=== PATIENT | female | born 1995 | race American Indian/Alaskan Native ===

== ENCOUNTER 2018-03-27 11:56 | Emergency (ER) | payer SELFPAY ==
[2018-03-27 12:10] VITALS: BP 111/66
--- NOTE | 2018-03-27 13:06 | Emergency Department Report ---
ED Female HPI - General Chief complaint: Urogenital-Female Stated complaint: BLEEDING Time Seen by Provider: 03/27/18 12:23 Source: patient, family, manager strategic marketing Mode of arrival: Ambulatory Limitations: Language Barrier - History of Present Illness Initial comments: This is a 23-year-old female presents to the emergency room after noticed blood and tissue this morning. She reports that she is 11 weeks and she does see VOLUNTEER SERVICES ASSISTANT. Denies any abdominal or back pain. Her pain scale is 0 out of 10. Patient says she is worried and would like to be evaluated. She is not concerned for STD as she is being seen by her VOLUNTEER SERVICES ASSISTANT and had a quantitative which placed her at 11 weeks and also STD testing. SHe denies any vaginal discharge MD Complaint: vaginal bleeding -: This morning Radiation: non-radiating Severity scale (0 -10): 0 Are you Now?: Yes (11 weeks) Last Menstrual Period: 12/22/17 EDC: 09/28/18 Associated Symptoms: vaginal bleeding. denies: vaginal discharge, abdominal pain, nausea/vomiting, fever/chills, headaches, loss of appetite, dysuria, hematuria, rash, seizure, shortness of breath, syncope, weakness - Related Data Sexually active: Yes Allergies Allergy/AdvReac Type Severity Reaction Status Date / Time No Known Allergies Allergy Unverified 03/27/18 12:10 ED Review of Systems ROS: Stated complaint: BLEEDING Other details as noted in HPI Constitutional: denies: chills, fever Eyes: denies: eye pain, eye discharge ENT: denies: ear pain, throat pain, hearing loss, congestion Respiratory: denies: cough, shortness of breath, SOB with exertion, SOB at rest , wheezing Cardiovascular: denies: chest pain, palpitations, edema, syncope, paroxysmal nocturnal dyspnea Gastrointestinal: denies: abdominal pain, nausea, vomiting, diarrhea Genitourinary: other (vaginal bleed and). denies: urgency, dysuria, frequency, hematuria, discharge, dyspareunia Musculoskeletal: denies: back pain, joint swelling, arthralgia, myalgia Skin: denies: rash, lesions Neurological: denies: headache, weakness, abnormal gait, vertigo ED Past Medical Hx - Past Medical History Previous Medical History?: No - Surgical History Past Surgical History?: No - Family History Family history: no significant - Social History Smoking Status: Never Smoker Substance Use Type: None ED Physical Exam - General Limitations: Language Barrier General appearance: alert, in no apparent distress - Head Head exam: Present: atraumatic, normocephalic, normal inspection - Eye Eye exam: Present: normal appearance, PERRL, EOMI Pupils: Present: normal accommodation - ENT ENT exam: Present: normal exam, normal orophraynx, mucous membranes moist - Neck Neck exam: Present: normal inspection, full ROM. Absent: tenderness, lymphadenopathy - Respiratory Respiratory exam: Present: normal lung sounds bilaterally. Absent: respiratory distress, chest wall tenderness - Cardiovascular Cardiovascular Exam: Present: regular rate, normal rhythm, normal heart sounds. Absent: systolic murmur, diastolic murmur - GI/Abdominal GI/Abdominal exam: Present: soft, normal bowel sounds. Absent: distended, tenderness, guarding, rebound, rigid - External exam: Present: normal external exam. Absent: erythema, swelling, lesions, lacerations, ecchymosis, bleeding - Extremities Exam Extremities exam: Present: normal inspection, full ROM, normal capillary refill , other (No cce. + 2 pulses in all extremities, no neurovascular compromise). Absent: tenderness, pedal edema, joint swelling, calf tenderness - Back Exam Back exam: Present: normal inspection, full ROM, other (endplates without any difficulties). Absent: tenderness, CVA tenderness (R), CVA tenderness (L), muscle spasm, paraspinal tenderness, vertebral tenderness, rash noted - Neurological Exam Neurological exam: Present: alert, oriented X3, normal gait - Psychiatric Psychiatric exam: Present: normal affect, normal mood - Skin Skin exam: Present: warm, dry, intact, normal color. Absent: rash ED Course Vital Signs 03/27/18 11:59 Temperature 99.1 F Pulse Rate 98 H Respiratory 16 Rate Blood Pressure 111/66 O2 Sat by Pulse 100 Oximetry - Reevaluation(s) Reevaluation #1: 03/27/18 16:46 Patient was given IV fluid normal saline 1 L and Zofran 4 mg IV. She is stable and in no acute distress. ED Medical Decision Making - Lab Data Result diagrams: 03/27/18 13:32 03/27/18 13:32 Lab Results 03/27/18 03/27/18 03/27/18 Range/Units 13:32 13:32 13:32 WBC 5.4 (4.5-11.0) K/mm3 RBC 4.21 (3.65-5.03) M/mm3 Hgb 13.3 (10.1-14.3) gm/dl Hct 37.9 (30.3-42.9) % MCV 90 (79-97) fl MCH 32 (28-32) pg MCHC 35 H (30-34) % RDW 13.3 (13.2-15.2) % Plt Count 179 (140-440) K/mm3 Lymph % (Auto) 28.1 (13.4-35.0) % [place] % (Auto) 8.7 H (0.0-7.3) % Eos % (Auto) 0.8 (0.0-4.3) % Baso % (Auto) 0.3 (0.0-1.8) % Lymph # 1.5 (1.2-5.4) K/mm3 [place] # 0.5 (0.0-0.8) K/mm3 Eos # 0.0 (0.0-0.4) K/mm3 Baso # 0.0 (0.0-0.1) K/mm3 Seg Neutrophils % 62.1 (40.0-70.0) % Seg Neutrophils # 3.3 (1.8-7.7) K/mm3 Sodium 136 L (137-145) mmol/L Potassium 3.6 (3.6-5.0) mmol/L Chloride 100.0 (98-107) mmol/L Carbon Dioxide 19 L (22-30) mmol/L Anion Gap 21 mmol/L BUN 6 L (7-17) mg/dL Creatinine 0.4 L (0.7-1.2) mg/dL Estimated GFR > 60 ml/min BUN/Creatinine Ratio 15 % Glucose 77 (65-100) mg/dL Calcium 8.9 (8.4-10.2) mg/dL Total Bilirubin 0.40 (0.1-1.2) mg/dL AST 15 (5-40) units/L ALT 15 (7-56) units/L Alkaline Phosphatase 45 (35-129) units/L Total Protein 7.1 (6.3-8.2) g/dL Albumin 3.9 (3.9-5) g/dL Albumin/Globulin Ratio 1.2 % HCG, Quant [id number] H (0-4) mIU/mL Urine Color (Yellow) Urine Turbidity (Clear) Urine pH (5.0-7.0) Ur Specific [place] (1.003-1.030) Urine Protein (Negative) mg/dL Urine Glucose (UA) (Negative) mg/dL Urine Ketones (Negative) mg/dL Urine Blood (Negative) Urine Nitrite (Negative) Ur Reducing Substances Urine Bilirubin (Negative) Urine Ictotest Urine Urobilinogen (<2.0) mg/dL Ur Leukocyte Esterase (Negative) Urine WBC (Auto) (0.0-6.0) /HPF Urine RBC (Auto) (0.0-6.0) /HPF U Epithel Cells (Auto) (0-13.0) /HPF Amorphous Crystals Urine Mucus /HPF Urine HCG, Qual (Negative) Blood Type Antibody Screen 03/27/18 03/27/18 Range/Units 13:32 14:25 WBC (4.5-11.0) K/mm3 RBC (3.65-5.03) M/mm3 Hgb (10.1-14.3) gm/dl Hct (30.3-42.9) % MCV (79-97) fl MCH (28-32) pg MCHC (30-34) % RDW (13.2-15.2) % Plt Count (140-440) K/mm3 Lymph % (Auto) (13.4-35.0) % [place] % (Auto) (0.0-7.3) % Eos % (Auto) (0.0-4.3) % Baso % (Auto) (0.0-1.8) % Lymph # (1.2-5.4) K/mm3 [place] # (0.0-0.8) K/mm3 Eos # (0.0-0.4) K/mm3 Baso # (0.0-0.1) K/mm3 Seg Neutrophils % (40.0-70.0) % Seg Neutrophils # (1.8-7.7) K/mm3 Sodium (137-145) mmol/L Potassium (3.6-5.0) mmol/L Chloride (98-107) mmol/L Carbon Dioxide (22-30) mmol/L Anion Gap mmol/L BUN (7-17) mg/dL Creatinine (0.7-1.2) mg/dL Estimated GFR ml/min BUN/Creatinine Ratio % Glucose (65-100) mg/dL Calcium (8.4-10.2) mg/dL Total Bilirubin (0.1-1.2) mg/dL AST (5-40) units/L ALT (7-56) units/L Alkaline Phosphatase (35-129) units/L Total Protein (6.3-8.2) g/dL Albumin (3.9-5) g/dL Albumin/Globulin Ratio % HCG, Quant (0-4) mIU/mL Urine Color Yellow (Yellow) Urine Turbidity Clear (Clear) Urine pH 7.0 (5.0-7.0) Ur Specific [place] 1.015 (1.003-1.030) Urine Protein <15 mg/dl (Negative) mg/dL Urine Glucose (UA) Neg (Negative) mg/dL Urine Ketones Neg (Negative) mg/dL Urine Blood Neg (Negative) Urine Nitrite Neg (Negative) Ur Reducing Substances Not Reportable Urine Bilirubin Neg (Negative) Urine Ictotest Not Reportable Urine Urobilinogen 2.0 (<2.0) mg/dL Ur Leukocyte Esterase Neg (Negative) Urine WBC (Auto) 1.0 (0.0-6.0) /HPF Urine RBC (Auto) 3.0 (0.0-6.0) /HPF U Epithel Cells (Auto) 4.0 (0-13.0) /HPF Amorphous Crystals Few Urine Mucus Few /HPF Urine HCG, Qual Positive A (Negative) Blood Type B POSITIVE Antibody Screen Negative - Radiology Data Radiology results: report reviewed X-rays transabdominal and OB transvaginal dictated by radiologist and report reviewed by myself. Please see report below. Patient: KHRIS RENAE MR#: [id number] : 1995 Acct:[id number] Age/Sex: 23 / F ADM Date: 03/27/18 Loc: ED Attending Dr: Ordering Physician: ADAMS MCKEE Date of Service: 03/27/18 Procedure(s): US OB transvaginal Accession Number(s): [id number] cc: ADAMS MCKEE FINAL REPORT PROCEDURE: US OB TRANSVAGINAL TECHNIQUE: Real-time transvaginal sonography of the uterus, placenta, amniotic fluid, adnexa, and fetus was performed with image documentation. Measurements were obtained to determine age/size. M-mode Doppler was used to document heartbeat. CPT 58182 HISTORY: 11 weeks and bleeding COMPARISON: Transabdominal OB ultrasound also performed today. FINDINGS: The report for this exam was generated using images from both the transabdominal and the transvaginal OB ultrasound both of which were performed today. There is a single living intrauterine gestation with a heart rate of 163 beats per minute. Shape of the gestational sac appears normal. Yolk sac is visualized. Amount of amniotic fluid appears normal. There is nonspecific mild amnio chorionic separation. Fetus currently too small to accurately assess anatomy. No gross abnormality is visualized. [place]-rump length measurement 4 centimeters corresponds to an age of 10 weeks 6 days[address] the EDC at 10/17/2018 +/-1 week. No evidence of subchorionic hemorrhage. No uterine masses are identified. Right and left ovaries are visualized and show no abnormalities. IMPRESSION: Single living intrauterine gestation visualized. By crown-rump length measurement estimated age is 10 weeks 6 days. This places the EDC at 10/17/2018 +/-1 week. No evidence of subchorionic hemorrhage. There is nonspecific amnion chorion separation. Fetus currently too small accurately assess anatomy. No gross abnormality is seen. Consider follow-up anatomic screen at 18-20 weeks. Transcribed By: YAMIL Dictated By: MARLEY PATINO MD Electronically Authenticated By: MARLEY PATINO MD Signed Date/Time: 03/27/18 1601 DD/ 1601 TD/TT: 03/27/18 1601 Patient: KHRIS RENAE MR#: [id number] : 1995 Acct:[id number] Age/Sex: 23 / F ADM Date: 03/27/18 Loc: ED Attending Dr: Ordering Physician: ADAMS MCKEE Date of Service: 03/27/18 Procedure(s): US OB <= 14 weeks fetus Accession Number(s): [id number] cc: ADAMS MCKEE FINAL REPORT PROCEDURE: US OB lt; = 14 WEEKS FETUS TECHNIQUE: Real-time transabdominal sonography of the uterus, placenta, amniotic fluid, adnexa, and fetus was performed with image documentation. Measurements were obtained to determine age/size. M-mode Doppler was used to document heartbeat. CPT 52999 HISTORY: 11 weeks and bleeding COMPARISON: Transvaginal OB ultrasound also performed today. FINDINGS: The report for this exam was generated using images from both the transabdominal and the transvaginal OB ultrasound both of which were performed today. There is a single living intrauterine gestation with a heart rate of 163 beats per minute. Shape of the gestational sac appears normal. Yolk sac is visualized. Amount of amniotic fluid appears normal. There is nonspecific mild amnio chorionic separation. Fetus currently too small to accurately assess anatomy. No gross abnormality is visualized. [place]-rump length measurement 4 centimeters corresponds to an age of 10 weeks 6 days. This places the EDC at 10/17/2018 +/-1 week. No evidence of subchorionic hemorrhage. No uterine masses are identified. Right and left ovaries are visualized and show no abnormalities. IMPRESSION: Single living intrauterine gestation visualized. By crown-rump length measurement estimated age is 10 weeks 6 days. This places the EDC at 10/17/2018 +/-1 week. No evidence of subchorionic hemorrhage. There is nonspecific amnion chorion separation. Fetus currently too small accurately assess anatomy. No gross abnormality is seen. Consider follow-up anatomic screen at 18-20 weeks. Transcribed By: YAMIL Dictated By: MARLEY PATINO MD Electronically Authenticated By: MARLEY PATINO MD Signed Date/Time: 03/27/181558 DD/ 58 TD/TT: 03/27/181558 - Medical Decision Making This is a 23-year-old female here report that she is having slight vaginal bleeding and and she is at 11 weeks . She says she is going to [facility] and she has had a blood test done and they told her she was 11 weeks but she has not ultrasound. Patient says that she has been once before without any problems. She is or 2 para 1. Denies any urinary burning, frequency or urgency. Denies any nausea or vomiting. Denies any abdominal or back pain. Patient denies any shortness of breath or chest pain. Patient says she woke up this morning and she wiped she saw light blood on tissue and she is here to be evaluated. This patient was seen and evaluated by myself. Physical exam is normal and no bleeding noted from vaginal area. Patient had CBC which was stable, chemistry stable. Quantitative hCG correlate at 11-12 weeks . Urinalysis negative for infection, ketone or protein. Urine is positive. Type and screen shows patient is B+. Patient has known episode of bleeding or abdominal pain in the emergency room. He had OB less than 14 week transabdominal and transvaginal ultrasound which shows IUP at 10 weeks and 6 days and heart rate is 163 bpm. no evidence of subchorionic hemorrhage noted per radiologist and she has nonspecific amnion chorion separation. Vital signs are stable she is afebrile. This was explained to patient and she voiced understanding. I encouraged her that she needs to follow up with her OB/ TRAINING AND DEVELOPMENT COORDINATOR tomorrow to call in the morning to schedule appointment and if she has increase in vaginal bleeding, abdominal or back pain, fever and/or chills or nausea or vomiting to return to the emergency room ALEXANDREA. Patient was not concerned for STD as she already had seen her VOLUNTEER SERVICES ASSISTANT and she said she had STD test then and blood work done but she did not have ultrasound. A/P 1: Threatened miscarriage-ultrasound show no evidence of subchorionic hemorrhage. Fetus is in utero at 10 weeks and 6 days with heart rate of 163 bpm. Patient with nonspecific amnion chorion separation. 2: Vaginal bleeding in early -patient had no episode of bleeding in the emergency room and her CBC is stable. I encouraged her to continue taking her vitamins and also to return to emergency room if bleeding increases. She had a light bleeding that she noted on tissue paper this morning. IV fluid normal saline 1 L given in emergency room and Zofran 4 mg IV to prevent nausea. Patient discharged home with her in stable condition to follow-up with her VOLUNTEER SERVICES ASSISTANT to call tomorrow to schedule an appointment. Her vital signs are stable she is afebrile. Denies any pain, nausea vomiting. No prescription given she is already on vitamin. - Differential Diagnosis ectopic , miscarriage, threatened miscarriage, UTI Critical care attestation.: If time is entered above; I have spent that time in minutes in the direct care of this critically ill patient, excluding procedure time. ED Disposition Clinical Impression: Threatened miscarriage in early , Separation of chorion and amnion membranes, antepartum, Vaginal bleeding in Disposition: DC-01 TO HOME OR SELFCARE Is pt being admited?: No Does the pt Need Aspirin: No Condition: Stable Instructions: Threatened Miscarriage (ED) Additional Instructions: Please increase her fluid intake Take vitamin per your VOLUNTEER SERVICES ASSISTANT VOLUNTEER SERVICES ASSISTANT in the morning to schedule follow-up appointment and please bring discharge instruction paperwork with you. If you develop continuous bleeding, abdominal back pain, urinary burning frequency or urgency, nausea and vomiting or fever or chills, please return to emergency room. The baby is at 10 weeks and 6 days old, located in uterus and the baby's heartbeat is at 163 bpm which is good amnion chorion separation. Por favor aumente lewis consumo de lquidos [place] vitamina segn lewis OB / TRAINING AND DEVELOPMENT COORDINATOR OB / TRAINING AND DEVELOPMENT COORDINATOR por la maana para programar elizabeth shashank de seguimiento y traiga la documentacin de instrucciones de georges con usted. Si desarrolla sangrado continuo, dolor de espalda abdominal, frecuencia o urgencia de ardor urinario, nuseas y vmitos o fiebre o escalofros, regrese a la sania de emergencias. El beb tiene 10 semanas y 6 mariee de [place], se encuentra en el tero y el latido cardaco del beb est a 163 lpm, lo que es butts separacin amnion corion. Referrals: these follow-up with your, VOLUNTEER SERVICES ASSISTANT [Other] - 03/28/18 Forms: Accompanied Note, Work/School Release Form(ED)
[2018-03-27 13:56] LABS: Basophils % (Auto) 0.3 % (0.0-1.8); Eosinophils % (Auto) 0.8 % (0.0-4.3); Hematocrit 37.9 % (30.3-42.9); Hemoglobin 13.3 gm/dl (10.1-14.3); Lymphocytes # (Auto) 1.5 K/mm3 (1.2-5.4); Lymphocytes % (Auto) 28.1 % (13.4-35.0); Mean Corpuscular HGB Conc 35 % (30-34); Mean Corpuscular Hemoglobin 32 pg (28-32); Mean Corpuscular Volume 90 fl (79-97); Monocytes # (Auto) 0.5 K/mm3 (0.0-0.8); Monocytes % (Auto) 8.7 % (0.0-7.3); Platelet Count 179 K/mm3 (140-440); Red Blood Count 4.21 M/mm3 (3.65-5.03); Red Cell Distribution Width 13.3 % (13.2-15.2)
[2018-03-27] MEDS ORDERED: NACL 0.9% 1000 ML 1,000 ML IV ONE (13:58)
[2018-03-27] MEDS ORDERED: ZOFRAN IV ONE (13:58)
[2018-03-27 14:20] LABS: Alanine Aminotransferase 15 units/L (7-56); Albumin 3.9 g/dL (3.9-5); BUN/Creatinine Ratio 15; Blood Urea Nitrogen 6 mg/dL (7-17); Calcium 8.9 mg/dL (8.4-10.2); Hemolysis Index 13
[2018-03-27 15:20] LABS: HCG Qualitative,Urine Positive (Negative)
[2018-03-27 15:26] LABS: Amorphous Crystals,Urine Few; Bilirubin,Urine NEG (Negative); Blood,Urine NEG (Negative); Color,Urine Yellow (Yellow); Mucus,Urine FEW /HPF; Protein,Urine <15 mg/dL mg/dL (Negative)
--- NOTE | 2018-03-27 16:06 | Ultrasound Report ---
FINAL REPORT PROCEDURE: US OB < = 14 WEEKS FETUS TECHNIQUE: Real-time transabdominal sonography of the uterus, placenta, amniotic fluid, adnexa, and fetus was performed with image documentation. Measurements were obtained to determine age/size. M-mode Doppler was used to document heartbeat. CPT 05606 HISTORY: 11 weeks and bleeding COMPARISON: Transvaginal OB ultrasound also performed today. FINDINGS: The report for this exam was generated using images from both the transabdominal and the transvaginal OB ultrasound both of which were performed today. There is a single living intrauterine gestation with a heart rate of 163 beats per minute. Shape of the gestational sac appears normal. Yolk sac is visualized. Amount of amniotic fluid appears normal. There is nonspecific mild amnio chorionic separation. Fetus currently too small to accurately assess anatomy. No gross abnormality is visualized. [place]-rump length measurement 4 centimeters corresponds to an age of 10 weeks 6 days. This places the EDC at 10/17/2018 +/-1 week. No evidence of subchorionic hemorrhage. No uterine masses are identified. Right and left ovaries are visualized and show no abnormalities. IMPRESSION: Single living intrauterine gestation visualized. By crown-rump length measurement estimated age is 10 weeks 6 days. This places the EDC at 10/17/2018 +/-1 week. No evidence of subchorionic hemorrhage. There is nonspecific amnion chorion separation. Fetus currently too small accurately assess anatomy. No gross abnormality is seen. Consider follow-up anatomic screen at 18-20 weeks.
--- NOTE | 2018-03-27 16:08 | Ultrasound Report ---
FINAL REPORT PROCEDURE: US OB TRANSVAGINAL TECHNIQUE: Real-time transvaginal sonography of the uterus, placenta, amniotic fluid, adnexa, and fetus was performed with image documentation. Measurements were obtained to determine age/size. M-mode Doppler was used to document heartbeat. CPT 16410 HISTORY: 11 weeks and bleeding COMPARISON: Transabdominal OB ultrasound also performed today. FINDINGS: The report for this exam was generated using images from both the transabdominal and the transvaginal OB ultrasound both of which were performed today. There is a single living intrauterine gestation with a heart rate of 163 beats per minute. Shape of the gestational sac appears normal. Yolk sac is visualized. Amount of amniotic fluid appears normal. There is nonspecific mild amnio chorionic separation. Fetus currently too small to accurately assess anatomy. No gross abnormality is visualized. [place]-rump length measurement 4 centimeters corresponds to an age of 10 weeks 6 days. This places the EDC at 10/17/2018 +/-1 week. No evidence of subchorionic hemorrhage. No uterine masses are identified. Right and left ovaries are visualized and show no abnormalities. IMPRESSION: Single living intrauterine gestation visualized. By crown-rump length measurement estimated age is 10 weeks 6 days. This places the EDC at 10/17/2018 +/-1 week. No evidence of subchorionic hemorrhage. There is nonspecific amnion chorion separation. Fetus currently too small accurately assess anatomy. No gross abnormality is seen. Consider follow-up anatomic screen at 18-20 weeks.
== END 2018-03-27 17:17 | disposition home or self-care (01) ==
LOC: ED 11:56
DX: O20.0 Threatened abortion (principal); O45.91 Premature separation of placenta, unspecified, first trimester; Z3A.11 11 weeks gestation of pregnancy
CPT/HCPCS: 36415; 76801; 76817; 80053; 81001; 81025; 84702; 85025; 86850; 86900; 86901; 87086; 99284; J2405; J7030

== ENCOUNTER 2020-03-03 10:30 | Emergency (ER) | payer SELFPAY ==
[2020-03-03 10:41] VITALS: BP 94/64
[2020-03-03 12:19] LABS: Basophils % (Auto) 0.3 % (0.0-1.8); Eosinophils # (Auto) 0.1 K/mm3 (0.0-0.4); Eosinophils % (Auto) 1.2 % (0.0-4.3); Hematocrit 44.5 % (30.3-42.9); Hemoglobin 14.7 gm/dl (10.1-14.3); Lymphocytes # (Auto) 1.5 K/mm3 (1.2-5.4); Lymphocytes % (Auto) 33.6 % (13.4-35.0); Mean Corpuscular HGB Conc 33 % (30-34); Mean Corpuscular Volume 93 fl (79-97); Monocytes # (Auto) 0.3 K/mm3 (0.0-0.8); Platelet Count 174 K/mm3 (140-440); Red Blood Count 4.77 M/mm3 (3.65-5.03); Red Cell Distribution Width 13.8 % (13.2-15.2)
--- NOTE | 2020-03-03 12:27 | Emergency Department Report ---
ED HPI - General Chief complaint: Vaginal Bleeding Stated complaint: 12WKS PREG AND BLEEDING Time Seen by Provider: 03/03/20 11:43 Source: patient Mode of arrival: Ambulatory Limitations: No Limitations - History of Present Illness Initial comments: This is a 25-year-old female nontoxic, well nourished in appearance, no acute signs of distress presents to the ED with c/o of vaginal bleeding x1 day. Patient stated yesterday she noticed some spotting this morning. Patient denies any abdominal or pelvic pain. Patient denies any vaginal discharge or foul odor. Patient denies any nausea, vomiting, chest pain, shortness of breathe, fever, chills, headache, stiff neck, numbness, tingling. Patient denies any urinary symptoms. Patient denies any allergies or PMH. Stated is abiout 12 weeks . MD Complaint: vaginal bleeding -: This morning Radiation: none Severity scale (0 -10): 0 Improves with: none Worsens with: none Associated symptoms: vaginal bleeding. denies: nausea/vomiting, vaginal discharge, abdominal pain, dysuria, headache, vision changes, malaise, dysparuenia, rash, seizure, shortness of breath, syncope, weakness Vaginal bleeding: light :: Yes Number of weeks : 12 Pre- care: none - Related Data Allergies Allergy/AdvReac Type Severity Reaction Status Date / Time No Known Allergies Allergy Unverified 03/27/18 12:10 ED Review of Systems ROS: Stated complaint: 12WKS PREG AND BLEEDING Other details as noted in HPI Constitutional: denies: chills, fever Eyes: denies: eye pain, eye discharge, vision change ENT: denies: ear pain, throat pain Respiratory: denies: cough, shortness of breath, wheezing Cardiovascular: denies: chest pain, palpitations Endocrine: no symptoms reported Gastrointestinal: denies: abdominal pain, nausea, diarrhea Genitourinary: abnormal menses. denies: urgency, dysuria, discharge Musculoskeletal: denies: back pain, joint swelling, arthralgia Skin: denies: rash, lesions Neurological: denies: headache, weakness, paresthesias Psychiatric: denies: anxiety, depression Hematological/Lymphatic: denies: easy bleeding, easy bruising ED Past Medical Hx - Past Medical History Previous Medical History?: Yes Additional medical history: Vaginal delivery x 2 - Surgical History Past Surgical History?: No - Social History Smoking Status: Never Smoker Substance Use Type: None ED Physical Exam - General Limitations: No Limitations General appearance: alert, in no apparent distress - Head Head exam: Present: atraumatic, normocephalic - Eye Eye exam: Present: normal appearance - Neck Neck exam: Present: normal inspection, full ROM. Absent: tenderness, meningismus, lymphadenopathy - Respiratory Respiratory exam: Present: normal lung sounds bilaterally. Absent: respiratory distress, wheezes, rales, rhonchi, stridor, chest wall tenderness, accessory muscle use, decreased breath sounds, prolonged expiratory - Cardiovascular Cardiovascular Exam: Present: regular rate, normal rhythm, normal heart sounds. Absent: irregular rhythm, systolic murmur, diastolic murmur, rubs, gallop - GI/Abdominal GI/Abdominal exam: Present: soft, normal bowel sounds. Absent: distended, tenderness, guarding, rebound, rigid, diminished bowel sounds - Extremities Exam Extremities exam: Present: normal inspection, full ROM - Back Exam Back exam: Present: normal inspection, full ROM. Absent: tenderness, CVA tenderness (R), CVA tenderness (L), muscle spasm, paraspinal tenderness, vertebral tenderness, rash noted - Neurological Exam Neurological exam: Present: alert, oriented X3, normal gait - Psychiatric Psychiatric exam: Present: normal affect, normal mood - Skin Skin exam: Present: warm, dry, intact, normal color. Absent: rash ED Course Vital Signs 03/03/20 10:40 Temperature 98.8 F Pulse Rate 94 H Respiratory 20 Rate Blood Pressure 94/64 [Right] O2 Sat by Pulse 100 Oximetry - Reevaluation(s) Reevaluation #1: 03/03/20 12:27 Patient is speaking in full sentences with no signs of distress noted. ED Medical Decision Making - Lab Data Result diagrams: 03/03/20 11:48 Lab Results 03/03/20 03/03/20 03/03/20 Range/Units 11:48 11:48 11:48 WBC 4.4 L (4.5-11.0) K/mm3 RBC 4.77 (3.65-5.03) M/mm3 Hgb 14.7 H (10.1-14.3) gm/dl Hct 44.5 H (30.3-42.9) % MCV 93 (79-97) fl MCH 31 (28-32) pg MCHC 33 (30-34) % RDW 13.8 (13.2-15.2) % Plt Count 174 (140-440) K/mm3 Lymph % (Auto) 33.6 (13.4-35.0) % Elmore % (Auto) 7.0 (0.0-7.3) % Eos % (Auto) 1.2 (0.0-4.3) % Baso % (Auto) 0.3 (0.0-1.8) % Lymph # 1.5 (1.2-5.4) K/mm3 Elmore # 0.3 (0.0-0.8) K/mm3 Eos # 0.1 (0.0-0.4) K/mm3 Baso # 0.0 (0.0-0.1) K/mm3 Seg Neutrophils % 57.9 (40.0-70.0) % Seg Neutrophils # 2.5 (1.8-7.7) K/mm3 HCG, Quant 3366 H (0-4) mIU/mL Urine Color (Yellow) Urine Turbidity (Clear) Urine pH (5.0-7.0) Ur Specific [place] (1.003-1.030) Urine Protein (Negative) mg/dL Urine Glucose (UA) (Negative) mg/dL Urine Ketones (Negative) mg/dL Urine Blood (Negative) Urine Nitrite (Negative) Urine Bilirubin (Negative) Urine Urobilinogen (<2.0) mg/dL Ur Leukocyte Esterase (Negative) Urine WBC (Auto) (0.0-6.0) /HPF Urine RBC (Auto) (0.0-6.0) /HPF U Epithel Cells (Auto) (0-13.0) /HPF Urine Mucus /HPF Blood Type B POSITIVE 03/03/20 Range/Units 13:45 WBC (4.5-11.0) K/mm3 RBC (3.65-5.03) M/mm3 Hgb (10.1-14.3) gm/dl Hct (30.3-42.9) % MCV (79-97) fl MCH (28-32) pg MCHC (30-34) % RDW (13.2-15.2) % Plt Count (140-440) K/mm3 Lymph % (Auto) (13.4-35.0) % Elmore % (Auto) (0.0-7.3) % Eos % (Auto) (0.0-4.3) % Baso % (Auto) (0.0-1.8) % Lymph # (1.2-5.4) K/mm3 Elmore # (0.0-0.8) K/mm3 Eos # (0.0-0.4) K/mm3 Baso # (0.0-0.1) K/mm3 Seg Neutrophils % (40.0-70.0) % Seg Neutrophils # (1.8-7.7) K/mm3 HCG, Quant (0-4) mIU/mL Urine Color Yellow (Yellow) Urine Turbidity Clear (Clear) Urine pH 6.0 (5.0-7.0) Ur Specific [place] 1.018 (1.003-1.030) Urine Protein <15 mg/dl (Negative) mg/dL Urine Glucose (UA) Neg (Negative) mg/dL Urine Ketones Neg (Negative) mg/dL Urine Blood Mod (Negative) Urine Nitrite Neg (Negative) Urine Bilirubin Neg (Negative) Urine Urobilinogen < 2.0 (<2.0) mg/dL Ur Leukocyte Esterase Neg (Negative) Urine WBC (Auto) 1.0 (0.0-6.0) /HPF Urine RBC (Auto) 2.0 (0.0-6.0) /HPF U Epithel Cells (Auto) 1.0 (0-13.0) /HPF Urine Mucus Few /HPF Blood Type - Radiology Data INDICATION: Vaginal bleeding. Estimated clinical age of 13 weeks, 5 days. TECHNIQUE: Transabdominal and Transvaginal. COMPARISON: OB ultrasound from 03/27/2018. FINDINGS: GESTATIONAL SAC: Well-defined oval shape and intrauterine in location. The mean sac diameter is 3 cm, consistent with an estimated age of 8 weeks, 1 day. YOLK SAC: Not seen. EMBRYO/FETUS: Not seen. ADNEXA: No significant abnormality. FREE FLUID: None. ADDITIONAL FINDINGS: None. IMPRESSION: Findings consistent with an anembryonic . Please correlate with clinical findings. Signer Name: Quintin Membreno MD Signed: 03/03/2020 12:06 PM Workstation Name: [id number] INDICATION: Vaginal bleeding. Estimated clinical age of 13 weeks, 5 days. TECHNIQUE: Transabdominal and Transvaginal. COMPARISON: OB ultrasound from 03/27/2018. FINDINGS: GESTATIONAL SAC: Well-defined oval shape and intrauterine in location. The mean sac diameter is 3 cm, consistent with an estimated age of 8 weeks, 1 day. YOLK SAC: Not seen. EMBRYO/FETUS: Not seen. ADNEXA: No significant abnormality. FREE FLUID: None. ADDITIONAL FINDINGS: None. IMPRESSION: Findings consistent with an anembryonic . Please correlate with clinical findings. Signer Name: Quintin Membreno MD Signed: 03/03/2020 12:06 PM Workstation Name: [id number] - Medical Decision Making This is a 25-year-old female presents with threatened miscarriage. Patient is stable and was examined by me. Normal abdominal exam. US OB obtained and dictated by the radiologist. Ua obtained. Quantative serum test obtained. Patient notified of the US report with no questions noted by the patient. Patient was instructed f/u with [facility] in 3-5 days. RH factor positive. Labs within normal limits. At time of discharge, the patient does not seem toxic or ill in appearance. No acute signs of distress noted. Patient agrees to discharge treatment plan of care. No further questions noted by the patient. Critical care attestation.: If time is entered above; I have spent that time in minutes in the direct care of this critically ill patient, excluding procedure time. ED Disposition Clinical Impression: Threatened miscarriage Disposition: DC-01 TO HOME OR SELFCARE Is pt being admited?: No Does the pt Need Aspirin: No Condition: Stable Instructions: Threatened Miscarriage (ED) Additional Instructions: Follow-up with a OBGYN doctor in 3-5 days or if symptoms worsen and continue return to emergency room as soon as possible. Referrals: PRIMARY CARE, [Primary Care Provider] - 3-5 Days [facility] [Provider [facility]] - 3-5 Days [facility] [Provider Group] - 3-5 Days Forms: Work/School Release Form(ED)
[2020-03-03 14:04] LABS: Bilirubin,Urine NEG (Negative); Blood,Urine MOD (Negative); Color,Urine Yellow (Yellow); Mucus,Urine FEW /HPF; Protein,Urine <15 mg/dL mg/dL (Negative); Urobilinogen,Urine < 2.0 mg/dL (<2.0)
--- NOTE | 2020-03-05 12:08 | Ultrasound Report ---
ULTRASOUND OBSTETRIC INDICATION: Vaginal bleeding. Estimated clinical age of 13 weeks, 5 days. TECHNIQUE: Transabdominal and Transvaginal. COMPARISON: OB ultrasound from 03/27/2018. FINDINGS: GESTATIONAL SAC: Well-defined oval shape and intrauterine in location. The mean sac diameter is 3 cm, consistent with an estimated age of 8 weeks, 1 day. YOLK SAC: Not seen. EMBRYO/FETUS: Not seen. ADNEXA: No significant abnormality. FREE FLUID: None. ADDITIONAL FINDINGS: None. IMPRESSION: Findings consistent with an anembryonic . Please correlate with clinical findings. Signer Name: Quintin Membreno MD Signed: 03/03/2020 1:06 PM Workstation Name: [id number]
== END 2020-03-03 15:21 | disposition home or self-care (01) ==
LOC: ED 10:30
DX: O20.0 Threatened abortion (principal); Z3A.13 13 weeks gestation of pregnancy
CPT/HCPCS: 36415; 76801; 76817; 81001; 84702; 85025; 86900; 86901